=== PATIENT | female | born 1960 | race Caucasian/White ===

== ENCOUNTER 2016-10-29 14:42 | Emergency (ER) | payer SELFPAY ==
[~2016-10-29] VITALS: Ht 157.5 cm; Wt 66.0 kg
[~2016-10-29 14:42] MED LIST: ASPI-1159; AUG250; METF500T; SIMV20TA2
[2016-10-29 15:17] VITALS: BP 128/80
== END 2016-10-30 00:17 | disposition left against medical advice (07) ==
LOC: ER 23:37
DX: R10.9 Unspecified abdominal pain (principal); Z53.21 Procedure and treatment not carried out due to patient leaving prior to being seen by health care provider